=== PATIENT | female | born 1995 | race Hispanic/Latino ===

== ENCOUNTER 2017-01-25 15:56 | Emergency (ER) | payer OTHER ==
[~2017-01-25] VITALS: Ht 149.9 cm; Wt 49.9 kg
[~2017-01-25 15:56] MED LIST: FLAGYL500 MG PO
--- NOTE | 2017-01-25 18:47 | ED GENERAL ADULT ---
History of Present Illness General Chief Complaint: Headache Stated Complaint: HIT IN HEAD YESTERDAY Source: patient Exam Limitations: no limitations Vital Signs & Intake/Output Vital Signs & Intake/Output Vital Signs Date Time Temp Pulse Resp B/P Pulse O2 O2 Flow FiO2 Ox Delivery Rate 01/25 1619 98.6 107 20 128/82 97 Room Air Allergies Coded Allergies: haloperidol (From HALDOL) (PER PT STARTS TWITCHING AND CANT CONTROL NECK AND EYES 02/24/16) Reconcile Medications Butalb/Acetaminophen/Caffeine (Fioricet 50-300-40 MG Capsule) 50 MG-300 MG-40 MG CAPSULE 1 TAB PO TID PRN HEADACHE Metronidazole (Flagyl) 500 MG TABLET 1 TAB PO TID INFECTION Triage Note: PT TO ED WITH C/O SORENESS TO TOP OF HEAD "GLASS FELL ONTO THE TOP OF MY HEAD". -LOC, TODAY C/O HEADACHE, "JUST WANT TO MAKE SURE EVERYTHING IS FINE". Triage Nurses Notes Reviewed? yes Onset: Gradual Duration: day(s): (1) Timing: no prior history Injury Environment: work Severity: moderate Severity Numbers: 7 Modifying Factors: Worsens With: other (PALPATION). HPI: Patient is a 21-year-old female presenting to the emergency department with chief complaint of headache after being hit in the head accidentally with a glass cup. Patient reports that she was bending over on the ground to pick something up in one of her coworkers accidentally dropped a glass on her head. She reports that immediately she got some blurred vision and thinks she blacked out for a few seconds. Since then she's had headaches. Denies any nausea or vomiting. No history of concussion in the past. She's been taking aspirin without relief. Last dose of aspirin was yesterday. Denies any weakness. No confusion. Denies any continued blurred vision. (KISHORE CARTAGENA) Past History Travel History Traveled to [place] past 21 day No Medical History Any Pertinent Medical History? 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 No (KISHORE CARTAGENA) Review of Systems Review of Systems Constitutional: Reports: no symptoms. Comments Review of systems: See HPI, All other systems negative. Constitutional, no chills fever or weight loss HEENT: No visual changes no sore throat no congestion Cardiovascular: No chest pain ,palpitation , orthopnea or ankle swelling Skin, no jaundice no rashes Respiratory: No dyspnea cough sputum or hemoptysis GI: No nausea no vomiting : No dysuria No hematuria Muscle skeletal: no back pain, no neck pain, Neurologic: No numbness no CURRENT confusion Psych: No stress anxiety or depression,. Heme/endocrine: No bruising no bleeding no polyuria or polydipsia Immunology: No splenectomy or history of AIDS (KISHORE CARTAGENA) Physical Exam Physical Exam General Appearance: well developed/nourished, no apparent distress, alert, awake , comfortable Comments: Well-developed well-nourished person in no acute distress HEENT: Normal EENT exam, extraocular motion intact, no nystagmus. Pupils equally round and reactive to light and accommodation. Nose is atraumatic. External auditory canal and Tympanic membranes clear. Pharynx normal. No swelling or edema. No step-off or bogginess palpated on entire scalp. No hematomas. Neck: Supple, no lymphadenopathy, normal range of motion without pain or tenderness, no C-spine tenderness. Back: Nontender, no CVA tenderness. Full range of motion Cardiovascular: Regular rate and rhythms no murmurs rubs or gallops, normal JVP Respiratory: Chest nontender. No respiratory distress.breath sounds clear to auscultation bilaterally Extremity: No edema, no calf normal and equal pulses. Neuro: Alert oriented x3, motor sensory normal, cranial nerves II through XII grossly intact. Cerebellar testing is unremarkable. Skin: No appreciable rash on exposed skin, skin is warm and dry. Psych: Mood and affect is normal, memory and judgment is normal. Core Measures ACS in differential dx? No CVA/TIA Diagnosis: No Severe Sepsis Present: No Septic Shock Present: No (KISHORE CARTAGENA) Progress Differential Diagnoses I considered the following diagnoses in my evaluation of the patient: Concussion, postconcussive syndrome, intracranial hemorrhage, contusion Plan of Care: Orders Procedure Date/time Status URINE 01/25 1846 Complete Laboratory Tests 01/25/171925: Urine Test NEGATIVE Diagnostic Imaging: Viewed by Me: CT Scan. Discussed w/RAD: CT Scan. Radiology Impression: PATIENT: ORTIZ MARTIN PRESENT AGE: 21 PATIENT ACCOUNT NO: [id number] : 95 LOCATION: [facility] ORDERING PHYSICIAN: KISHORE JULES SERVICE DATE: 01/25/17 EXAM TYPE: CAT - CT HEAD WO IV CONTRAST EXAMINATION: CT HEAD WITHOUT CONTRAST CLINICAL INFORMATION: Headache and blurred vision. COMPARISON: None TECHNIQUE: Contiguous axial imaging was performed from the skull base to vertex without intravenous administration of contrast. DLP: 529.16 mGy-cm FINDINGS: There is no evidence of acute intracranial hemorrhage or territorial infarction. No abnormal mass effect or midline shift is seen. Flores to white matter differentiation is well preserved. No extra-axial fluid collections are identified. 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 The ventricles are normal in size. There is no abnormal attenuation within the brain parenchyma. The osseous structures and soft tissues are normal. The mastoid air cells and visualized portions of the paranasal sinuses are well aerated. IMPRESSION: No acute intracranial pathology. DICTATED BY: LILLIAN AHMADI MD DATE/TIME DICTATED:01/25/172004 BUSINESS SUPPORT:BRENDA DATE/TIME TRANSCRIBED:01/25/172004 CONFIDENTIAL, DO NOT COPY WITHOUT APPROPRIATE AUTHORIZATION. Initial ED EKG: none Comments: Patient reports some relief with Percocet. She does not want to file Worker's Compensation at this time. Patient informed of CT scan results. Likely mild concussion/minor head injury. Educated on signs and symptoms return. (KISHORE CARTAGENA) Departure Departure Time of Disposition: 2025 Disposition: HOME OR SELF CARE Condition: Stable Clinical Impression Primary Impression: Minor head injury Qualifiers: Encounter type: initial encounter Qualified Code: S00.90XA - Unspecified superficial injury of unspecified part of head, initial encounter Secondary Impressions: Headache Qualifiers: Headache type: unspecified Headache chronicity pattern: acute headache Intractability: not intractable Qualified Code: R51 - Headache Referrals: PATIENT HAS NO PRIMARY CARE DR (PCP/Family) Additional Instructions: Follow-up with [facility] call to make an appointment. Take Fioricet as prescribed FOR headaches. Increase fluids. Avoid bright light, excessive stimulates ischemic headaches worse. Departure Forms: Customer Survey General Discharge Information Prescriptions: Current Visit Scripts Butalb/Acetaminophen/Caffeine (Fioricet 50-300-40 MG Capsule) 1 TAB PO TID PRN HEADACHE #10 TAB (KISHORE CARTAGENA) PA/RN PLACEMENT Co-Sign Statement Statement: ED Attending supervision documentation- [] I saw and evaluated the patient. I have also reviewed all the pertinent lab results and diagnostic results. I agree with the findings and the plan of care as documented in the PA's/RN PLACEMENT's documentation. [X] I have reviewed the ED Record and agree with the PA's/RN PLACEMENT's documentation. [] Additions or exceptions (if any) to the PAs/RN PLACEMENT's note and plan are summarized below: [] (BALJINDER WALSH,LIS) Critical Care Note Critical Care Note Critical Care Time: 30-74 min (KISHORE CARTAGENA)
--- NOTE | 2017-01-25 20:09 | CT SCAN REPORT ---
EXAMINATION: CT HEAD WITHOUT CONTRAST CLINICAL INFORMATION: Headache and blurred vision. COMPARISON: None TECHNIQUE: Contiguous axial imaging was performed from the skull base to vertex without intravenous administration of contrast. DLP: 529.16 mGy-cm FINDINGS: There is no evidence of acute intracranial hemorrhage or territorial infarction. No abnormal mass effect or midline shift is seen. Flores to white matter differentiation is well preserved. No extra-axial fluid collections are identified. 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 The ventricles are normal in size. There is no abnormal attenuation within the brain parenchyma. The osseous structures and soft tissues are normal. The mastoid air cells and visualized portions of the paranasal sinuses are well aerated. IMPRESSION: No acute intracranial pathology.
[2017-01-25] MEDS ORDERED: FIORICET 50-301 EACH PO (20:28)
[2017-01-25 20:32] VITALS: BP 117/68
== END 2017-01-25 20:33 ==
LOC: ERH 15:56
DX: S09.90XA Unspecified injury of head, initial encounter (principal); R51 Headache; W22.8XXA Striking against or struck by other objects, initial encounter; Y93.9 Activity, unspecified; Y92.9 Unspecified place or not applicable
CPT/HCPCS: 81025